=== PATIENT | female | born 1965 | race American Indian/Alaskan Native ===

== ENCOUNTER 2020-08-28 12:00 | Outpatient (CLI) | payer OTHER ==
--- NOTE | 2020-08-28 14:51 | XRay Report ---
Knees bilateral standing INDICATION: Bilateral knee pain IMPRESSION: Slight joint space loss within the medial femorotibial compartments bilaterally and symme trically. Signer Name: Brayan Monterroso MD Signed: 08/28/2020 2:47 PM Workstation Name: [employer]
--- NOTE | 2020-08-28 14:51 | XRay Report ---
Lumbar spine 3 views INDICATION: Low back pain without injury IMPRESSION: Slight grade 1 anterolisthesis of L4 and L5. There is mild bilateral neural foraminal alonso nosis at L5-S1 secondary to facet and discogenic degenerative change. No vertebral body height loss o f the lumbar spine appreciated. Signer Name: Brayan Monterroso MD Signed: 08/28/2020 2:47 PM Workstation Name: [id number]
== END 2020-08-28 12:01 | disposition home or self-care (01) ==
LOC: XRAY 12:00
PROVIDERS: ATTEND Internal Medicine
DX: M43.16 Spondylolisthesis, lumbar region (principal); M48.07 Spinal stenosis, lumbosacral region; M47.817 Spondylosis without myelopathy or radiculopathy, lumbosacral region; E11.40 Type 2 diabetes mellitus with diabetic neuropathy, unspecified; M25.562 Pain in left knee; M25.561 Pain in right knee; M54.5 Low back pain
CPT/HCPCS: 72100; 73565